=== PATIENT | female | born 1975 | race African-American/Black ===

== ENCOUNTER 2017-02-28 07:42 | Emergency (ER) | payer BC ==
[~2017-02-28] VITALS: Ht 149.9 cm; Wt 83.5 kg
[~2017-02-28 07:42] MED LIST: NORCO 5-325 TA1 EACH PO; PREDNISONE 20 M20 MG PO
[2017-02-28] MEDS ORDERED: FLEXERIL PO (09:24)
[2017-02-28] MEDS ORDERED: NAPROSYN500 MG PO (09:24)
[2017-02-28] MEDS ORDERED: MEDROLDOSEPACK PO (09:24)
[2017-02-28 10:07] VITALS: BP 120/69
== END 2017-02-28 10:09 | disposition home or self-care (01) ==
LOC: ER 07:42
DX: S86.911A Strain of unspecified muscle(s) and tendon(s) at lower leg level, right leg, initial encounter (principal); F10.99 Alcohol use, unspecified with unspecified alcohol-induced disorder; X58.XXXA Exposure to other specified factors, initial encounter; Y93.84 Activity, sleeping; Y92.89 Other specified places as the place of occurrence of the external cause; Y99.8 Other external cause status

== ENCOUNTER 2018-09-09 10:21 | Emergency (ER) | payer BC ==
[~2018-09-09] VITALS: Ht 149.9 cm; Wt 88.9 kg
[~2018-09-09 10:21] MED LIST changes: +FLEXERIL PO; +MEDROLDOSEPACK PO; +NAPROSYN500 MG PO
[2018-09-09] MEDS ORDERED: IBUPROFEN 600600 M1 PO (11:02)
[2018-09-09 12:04] VITALS: BP 143/88
--- NOTE | 2018-09-11 13:20 | EKG ---
[place] [address] [facility] [employer] [address] ELECTROCARDIOGRAM REPORT Name: MIRIAM RAMÍREZ Room #: [facility]#: [id number] ������������������ Admission: 09/09/18 ������������������ Attend Phys: Discharge: 09/09/18 ������������������ Date of : 75 Report #: [id number] ����������������������������������������������������������������� [id number] THIS REPORT FOR: //name// [facility] ED Test Date: 2018-09-09 Test Time: 10:29:48 Pat Name: MIRIAM ROMERO Department: Room: Gender: F [employer]: Oseas ROBLES : 1975 Requested By: Victor Manuel Wheat Order Number: [id number] MD: Marco Antonio Hadley Measurements Intervals [place] Rate: 87 P: 54 MT: 169 QRS: -4 QRSD: 87 T: 25 QT: 357 QTc: 430 Interpretive Statements Sinus rhythm Poor R wave progression No previous ECG available for comparison Electronically Signed On 09-11-2018 13:20:19 CDT by Marco Antonio Hadley [email or web address] ��������������������������������������������� <ELECTRONICALLY SIGNED> ���������������������������������������� By: Marco Antonio Hadley MD, [facility] ��������������������������������������������� 09/11/18 1320 1029 1029 Marco Antonio Hadley MD, FACC /EPI
== END 2018-09-09 12:04 | disposition home or self-care (01) ==
LOC: ER 10:21
DX: R07.89 Other chest pain (principal); M25.511 Pain in right shoulder; Z98.890 Other specified postprocedural states